=== PATIENT | female | born 1965 | race Caucasian/White ===

== ENCOUNTER 2019-07-04 17:58 | Emergency (ER) | payer OTHER ==
--- NOTE | 2019-07-04 18:47 | EDM.PDOC ---
ED HPI GENERAL MEDICAL PROBLEM - General Stated Complaint: INJURY TO FINGER ON R HAND Time Seen by Provider: 07/04/19 18:47 - History of Present Illness INITIAL COMMENTS - FREE TEXT/NARRATIVE: Pt presents with crush injury to right point finger 1 cm u shaped laceration to pad area. no deformity noted. Onset: Today Onset Date: 07/04/19 Onset Time: 12:30 Location: Reports: Upper Extremity, Right, Other (pointer finger u shaped laceration 1 cm ) Improves with: Reports: Cold Therapy - Related Data Allergies Allergy/AdvReac Type Severity Reaction Status Date / Time No Known Allergies Allergy Verified 07/04/19 19:22 Home Meds: Home Meds Aspirin 81 mg DAILY 07/04/19 [History] Lisinopril 2.5 mg DAILY 07/04/19 [History] Pravastatin Sodium 10 mg DAILY 07/04/19 [History] glipiZIDE [Glipizide ER] 2.5 mg DAILY 07/04/19 [History] metFORMIN HCl [Metformin HCl ER] 1,000 mg BID 07/04/19 [History] Review of Systems - Review of Systems Review Of Systems: See Below Constitutional: Reports: No Symptoms Eyes: Reports: No Symptoms Ears: Reports: No Symptoms Nose: Reports: No Symptoms Mouth/Throat: Reports: No Symptoms Respiratory: Reports: No Symptoms Cardiovascular: Reports: No Symptoms GI/Abdominal: Reports: No Symptoms Genitourinary: Reports: No Symptoms Musculoskeletal: Reports: Other (Pt presents with crush injury to right point finger 1 cm u shaped laceration to pad area. no deformity noted.) Skin: Reports: No Symptoms Neurological: Reports: No Symptoms Psychiatric: Reports: No Symptoms ED EXAM, GENERAL - Physical Exam Exam: See Below Exam Limited By: Altered Mental Status General Appearance: Alert, WD/WN Ears: Normal External Exam Nose: Normal Inspection, Normal Mucosa Throat/Mouth: Normal Inspection Head: Atraumatic, Normocephalic Neck: Normal Inspection, Supple Respiratory/Chest: No Respiratory Distress, Lungs Clear, Normal Breath Sounds Cardiovascular: Normal Peripheral Pulses, Regular Rate, Rhythm Rectal (Female) Exam: Normal Exam Back Exam: Normal Inspection Extremities: Normal Inspection, Normal Range of Motion, No Pedal Edema, Normal Capillary Refill Neurological: Alert, Oriented Skin Exam: Warm, Dry, Other (Pt presents with crush injury to right point finger 1 cm u shaped laceration to pad area. no deformity noted.) Course - Orders/Labs/Meds Orders: Active Orders 24 hr Category Date Time Status Hand 2V Rt [CR] Stat Exams 07/04/19 18:41 Taken Departure - Departure Time of Disposition: 19:28 Disposition: Home, Self-Care 01 Condition: Good Clinical Impression: Laceration - Discharge Information Instructions: Stitches, [place], or Adhesive Wound Closure, [id number] Referrals: Mary Sharp MD [Primary Care Provider] - - My Orders Last 24 Hours: My Active Orders 07/04/19 18:41 Hand 2V Rt [CR] Stat - Assessment/Plan Last 24 Hours: My Active Orders 07/04/19 18:41 Hand 2V Rt [CR] Stat
--- NOTE | 2019-07-04 19:38 | CR ---
[id number] RAD/RAD Hand Right 2V Exam: RAD Hand Right 2V Indication:CRUSH INJURY TO POINTER FINGER DIP JOINT AND BELOW Comparison: No prior imaging for comparison. Discussion: No fracture or dislocation. Impression: No acute findings. Chemo Zarate MD 07/04/19 1938 Thank you for allowing us to participate in the care of your patient.
== END 2019-07-04 19:40 | disposition home or self-care (01) ==
LOC: VM.ED 17:58
DX: S67.190A Crushing injury of right index finger, initial encounter (principal); S61.210A Laceration without foreign body of right index finger without damage to nail, initial encounter; Z79.82 Long term (current) use of aspirin; Z79.899 Other long term (current) drug therapy; W31.89XA Contact with other specified machinery, initial encounter; Y99.0 Civilian activity done for income or pay
CPT/HCPCS: 12001; 73120-RT; 99283-25